=== PATIENT | male | born 1975 | race African-American/Black ===

== ENCOUNTER 2022-04-04 05:05 | Emergency (ER) | payer SELFPAY ==
[~2022-04-04] VITALS: Ht 170.2 cm; Wt 76.8 kg
[2022-04-04 05:32] VITALS: BP 146/89
== END 2022-04-04 09:26 | disposition left against medical advice (07) ==
LOC: ER 05:09
DX: Z53.21 Procedure and treatment not carried out due to patient leaving prior to being seen by health care provider (principal)
CPT/HCPCS: 82948